=== PATIENT | female | born 1940 | race Caucasian/White ===

== ENCOUNTER 2017-01-27 16:37 | Observation (INO) | payer OTHER ==
[~2017-01-27] VITALS: Ht 177.8 cm; Wt 56.5 kg
[~2017-01-27 16:37] MED LIST: ASPIRIN81 M2 PO; CALCIUM MAGNES1 EACH PO; COZAAR100 MG PO; CRESTOR20 MG PO; FLEXERIL10 MG PO; HYDROCHLOROTH12.5 M3 PO; HYDROCHLOROTHIA25 MG PO; KLOR-CON M2020 MEQ PO; NORVASC10 MG PO; NORVASC5 MG PO
[2017-01-27 17:03] LABS: HEMATOCRIT 43.9 % (36.0-46.0); MCH 29.2 PG (29.0-34.0); MCHC 32.3 G/DL (30.0-36.0); MCV 90.1 FL (83-99); MEAN PLAT.VOLUME 9.6 uM^3 (9.5-12.4); PLATELET COUNT 319 K/uL (156-360); RBC DIS.WIDTH-CV 13.7 % (11.8-14.6); RBC DIS.WIDTH-SD 44.4 % (39-53); RED BLOOD COUNT 4.87 M/uL (3.80-5.20); WHITE BLOOD COUNT 10.3 K/uL (4.1-10.2)
[2017-01-27 17:19] LABS: CHLORIDE 104 mEq/L (99-109); SODIUM 143 mEq/L (136-147)
[2017-01-27 17:20] LABS: MAGNESIUM 1.8 mg/dL (1.3-2.7)
[2017-01-27 17:21] LABS: GLUCOSE 107 mg/dL (70-99)
[2017-01-27 17:23] LABS: ANION GAP 12 MEQ/L (2-14)
[2017-01-27 17:25] LABS: GFR ESTIMATE (CALCULATED) > 59 mL/min/
[2017-01-27 17:26] LABS: UREA NITROGEN (BUN) 21 mg/dL (9-23)
[2017-01-27 17:32] LABS: TROP-I INTERPRETATION NEGATIVE; TROPONIN-I 0.02 ng/mL (0.0-0.30)
[2017-01-27] MEDS ORDERED: NORVASC5 MG PO (21:01)
[2017-01-27] MEDS ORDERED: RISPERIDONE0.5 MG PO (21:02)
[2017-01-28 00:01] VITALS: BP 141/73
[2017-01-28 01:08] LABS: TROP-I INTERPRETATION NEGATIVE; TROPONIN-I 0.03 ng/mL (0.0-0.30)
[2017-01-28 04:36] VITALS: BP 157/78
[2017-01-28 06:24] LABS: ANION GAP 8 MEQ/L (2-14); CHLORIDE 107 MEQ/L (99-109); POTASSIUM 3.7 MEQ/L (3.7-5.4); SAMPLE HEMOLYSIS CHECK 0; SAMPLE ICTERIC CHECK 0; SAMPLE LIPEMIA CHECK 0; SODIUM 142 MEQ/L (136-147); TOTAL BILIRUBIN 0.4 MG/DL (0.0-1.0)
[2017-01-28 06:30] LABS: ALKALINE PHOSPHATASE 57 IU/L (3-129); GFR ESTIMATE (CALCULATED) > 59 mL/min/; GLUCOSE 84 mg/dL (70-99); UREA NITROGEN (BUN) 18 mg/dL (9-23)
[2017-01-28 06:32] LABS: TROP-I INTERPRETATION NEGATIVE; TROPONIN-I 0.02 ng/mL (0.0-0.30)
[2017-01-28 06:45] LABS: HEMATOCRIT 36.1 % (36.0-46.0); MCH 28.5 PG (29.0-34.0); MCHC 31.9 G/DL (30.0-36.0); MCV 89.4 FL (83-99); MEAN PLAT.VOLUME 9.9 uM^3 (9.5-12.4); PLATELET COUNT 285 K/uL (156-360); RBC DIS.WIDTH-CV 13.9 % (11.8-14.6); RBC DIS.WIDTH-SD 45.5 % (39-53); RED BLOOD COUNT 4.04 M/uL (3.80-5.20); WHITE BLOOD COUNT 8.5 K/uL (4.1-10.2)
[2017-01-28 08:30] VITALS: BP 147/75
[2017-01-28 11:50] VITALS: BP 140/69
[2017-01-28] MEDS ORDERED: LOPRESSOR25 MG PO (15:43)
== END 2017-01-28 17:16 | disposition home or self-care (01) ==
LOC: EME 16:37 → 4EAST 22:11 → EDOF 22:11 → 4EAST 22:11
PROVIDERS: Emergency Medicine; Internal Medicine
DX: I47.1 Supraventricular tachycardia (principal); T48.6X5A Adverse effect of antiasthmatics, initial encounter; D72.829 Elevated white blood cell count, unspecified; Z86.73 Personal history of transient ischemic attack (TIA), and cerebral infarction without residual deficits; I08.0 Rheumatic disorders of both mitral and aortic valves; I10 Essential (primary) hypertension; E78.00 Pure hypercholesterolemia, unspecified; F32.9 Major depressive disorder, single episode, unspecified; Z87.891 Personal history of nicotine dependence
CPT/HCPCS: 80048; 80053; 83735; 84443; 84484; 85027; 93005; 93306; 99281; 99285; G0378; J0153; J2250; J7030

== ENCOUNTER 2017-08-11 16:30 | Inpatient (IN) | payer OTHER ==
[~2017-08-11] VITALS: Ht 177.8 cm; Wt 64.3 kg
[~2017-08-11 16:30] MED LIST changes: +LOPRESSOR25 MG PO; +RISPERIDONE0.5 MG PO
[2017-08-11 17:59] LABS: ADD MIUA? YES; BILIRUBIN NEGATIVE; BLOOD NEGATIVE; COLOR YELLOW ((YELLOW)); GLUCOSE (STRIP) NEGATIVE; KETONES NEGATIVE; LEUKOCYTES NEGATIVE; NITRITE NEGATIVE; PROTEIN (STRIP) 30; UROBILINOGEN 0.2 MG/DL (0.2-1.0)
[2017-08-11 18:04] LABS: BACTERIA NONE SEEN /HPF; EPITHELIAL CELLS RARE /HPF; HYALINE CASTS 0-5 /LPF; MUCUS TRACE /LPF; RED BLOOD CELLS 0-5 /HPF (0-5); UCUL ADDED? NO; WHITE BLOOD CELLS 0-5 /HPF (0-5)
[2017-08-11 18:31] LABS: EOSINOPHIL (%) 0.4 % (0-5); EOSINOPHIL COUNT 0.1 K/uL (0-0.3); HEMATOCRIT 34.3 % (36.0-46.0); IMMATURE GRANULOCYTE (%) 2.2 % (0.0-0.7); IMMATURE GRANULOCYTE COUNT 0.4 K/uL; INSTRUMENT ABS NEUTROPHIL CT 16.7 K/uL; LYMPHOCYTE COUNT 0.6 K/uL (1.0-2.8); MCH 28.3 PG (29.0-34.0); MCHC 30.9 G/DL (30.0-36.0); MCV 91.7 FL (83-99); MEAN PLAT.VOLUME 9.6 uM^3 (9.5-12.4); MONOCYTE (%) 8.5 % (3-12); MONOCYTE COUNT 1.7 K/uL (0-0.8); NEUTROPHIL (%) 85.7 % (45-76); NEUTROPHIL COUNT 16.7 K/uL (1.8-6.4); PLATELET COUNT 364 K/uL (156-360); RBC DIS.WIDTH-CV 14.2 % (11.8-14.6); RBC DIS.WIDTH-SD 47.5 % (39-53); RED BLOOD COUNT 3.74 M/uL (3.80-5.20); WHITE BLOOD COUNT 19.5 K/uL (4.1-10.2)
[2017-08-11 18:45] LABS: CHLORIDE 111 mEq/L (99-109); POTASSIUM 4.2 mEq/L (3.7-5.4); SODIUM 143 mEq/L (136-147)
[2017-08-11 18:48] LABS: GLUCOSE 97 mg/dL (70-99)
[2017-08-11 18:49] LABS: ANION GAP 12 MEQ/L (2-14)
[2017-08-11 18:50] LABS: TOTAL BILIRUBIN 0.2 mg/dL (0.0-1.0)
[2017-08-11 18:51] LABS: ALKALINE PHOSPHATASE 67 IU/L (3-129); GFR ESTIMATE (CALCULATED) > 59 mL/min/
[2017-08-11 18:52] LABS: UREA NITROGEN (BUN) 28 mg/dL (9-23)
[2017-08-11 18:56] LABS: TROP-I INTERPRETATION NEGATIVE; TROPONIN-I 0.05 ng/mL (0.0-0.30)
[2017-08-11] MEDS ORDERED: TUMS DUAL ACTI1 EACH PO (20:22)
[2017-08-11] MEDS ORDERED: LORAZEPAM0.5 MG PO (20:23)
[2017-08-11 23:39] VITALS: BP 108/63
[2017-08-12 00:52] LABS: INTER. NORMALIZED RATIO 1.1; PROTHROMBIN TIME 11.8 SEC (10.2-12.9)
[2017-08-12 00:54] LABS: PTT 26.2 SEC (25-37)
[2017-08-12 01:07] LABS: TROP-I INTERPRETATION NEGATIVE; TROPONIN-I 0.06 ng/mL (0.0-0.30)
[2017-08-12 03:40] VITALS: BP 122/75
[2017-08-12 05:30] LABS: HEMATOCRIT 35.1 % (36.0-46.0); MCH 28.9 PG (29.0-34.0); MCHC 31.1 G/DL (30.0-36.0); MCV 93.1 FL (83-99); MEAN PLAT.VOLUME 10.2 uM^3 (9.5-12.4); PLATELET COUNT 326 K/uL (156-360); RBC DIS.WIDTH-CV 14.3 % (11.8-14.6); RBC DIS.WIDTH-SD 48.5 % (39-53); RED BLOOD COUNT 3.77 M/uL (3.80-5.20); WHITE BLOOD COUNT 9.4 K/uL (4.1-10.2)
[2017-08-12 05:41] LABS: TROP-I INTERPRETATION NEGATIVE; TROPONIN-I 0.04 ng/mL (0.0-0.30)
[2017-08-12 07:26] VITALS: BP 138/70
[2017-08-12 11:55] VITALS: BP 126/66
[2017-08-12 16:22] VITALS: BP 121/60
[2017-08-12 19:39] VITALS: BP 120/57
[2017-08-13 01:00] VITALS: BP 138/74
[2017-08-13 04:38] VITALS: BP 125/63
[2017-08-13 05:19] LABS: HEMATOCRIT 28.5 % (36.0-46.0); MCH 29.5 PG (29.0-34.0); MCHC 32.6 G/DL (30.0-36.0); MCV 90.5 FL (83-99); PLATELET COUNT 322 K/uL (156-360); RBC DIS.WIDTH-CV 14.3 % (11.8-14.6); RBC DIS.WIDTH-SD 46.9 % (39-53); RED BLOOD COUNT 3.15 M/uL (3.80-5.20); WHITE BLOOD COUNT 7.9 K/uL (4.1-10.2)
[2017-08-13 05:45] LABS: ANION GAP 7 MEQ/L (2-14); CHLORIDE 112 MEQ/L (99-109); GFR ESTIMATE (CALCULATED) > 59 mL/min/; GLUCOSE 73 mg/dL (70-99); POTASSIUM 3.5 MEQ/L (3.7-5.4); SAMPLE HEMOLYSIS CHECK 0; SAMPLE ICTERIC CHECK 0; SAMPLE LIPEMIA CHECK 0; SODIUM 141 MEQ/L (136-147); UREA NITROGEN (BUN) 11 mg/dL (9-23)
[2017-08-13 08:27] VITALS: BP 127/66
[2017-08-13 11:13] VITALS: BP 133/61
[2017-08-13 17:37] VITALS: BP 115/73
[2017-08-13 19:30] VITALS: BP 127/65
[2017-08-14 00:59] VITALS: BP 134/74
[2017-08-14 04:00] VITALS: BP 126/69
[2017-08-14 05:45] LABS: HEMATOCRIT 27.9 % (36.0-46.0); MCHC 31.5 G/DL (30.0-36.0); MCV 88.9 FL (83-99); PLATELET COUNT 333 K/uL (156-360); RBC DIS.WIDTH-CV 14.6 % (11.8-14.6); RBC DIS.WIDTH-SD 46.7 % (39-53); RED BLOOD COUNT 3.14 M/uL (3.80-5.20); WHITE BLOOD COUNT 5.6 K/uL (4.1-10.2)
[2017-08-14 06:20] LABS: ANION GAP 8 MEQ/L (2-14); CHLORIDE 114 MEQ/L (99-109); GFR ESTIMATE (CALCULATED) > 59 mL/min/; GLUCOSE 86 mg/dL (70-99); POTASSIUM 3.6 MEQ/L (3.7-5.4); SAMPLE HEMOLYSIS CHECK 0; SAMPLE ICTERIC CHECK 0; SAMPLE LIPEMIA CHECK 0; SODIUM 142 MEQ/L (136-147); UREA NITROGEN (BUN) 8 mg/dL (9-23)
[2017-08-14 07:56] VITALS: BP 134/74
[2017-08-14 16:00] VITALS: BP 129/82
[2017-08-14 20:15] VITALS: BP 138/62
[2017-08-15 04:02] VITALS: BP 132/74
[2017-08-15 05:56] LABS: HEMATOCRIT 29.5 % (36.0-46.0); MCHC 32.9 G/DL (30.0-36.0); MCV 88.1 FL (83-99); MEAN PLAT.VOLUME 9.9 uM^3 (9.5-12.4); PLATELET COUNT 321 K/uL (156-360); RBC DIS.WIDTH-CV 14.7 % (11.8-14.6); RED BLOOD COUNT 3.35 M/uL (3.80-5.20); WHITE BLOOD COUNT 7.1 K/uL (4.1-10.2)
[2017-08-15 06:28] LABS: ANION GAP 9 MEQ/L (2-14); CHLORIDE 110 MEQ/L (99-109); GFR ESTIMATE (CALCULATED) > 59 mL/min/; GLUCOSE 95 mg/dL (70-99); POTASSIUM 3.3 MEQ/L (3.7-5.4); SAMPLE HEMOLYSIS CHECK 0; SAMPLE ICTERIC CHECK 0; SAMPLE LIPEMIA CHECK 0; SODIUM 140 MEQ/L (136-147); UREA NITROGEN (BUN) 6 mg/dL (9-23)
[2017-08-15 07:46] VITALS: BP 131/69
[2017-08-15 12:00] VITALS: BP 138/77
[2017-08-15] MEDS ORDERED: DONEPEZIL HCL5 MG PO (12:53)
[2017-08-15] MEDS ORDERED: MIRTAZAPINE15 MG PO (12:53)
[2017-08-15] MEDS ORDERED: LORAZEPAM0.5 MG PO (12:56)
[2017-08-15] MEDS ORDERED: LOVENOX40 MG/0.4 SC (13:00)
[2017-08-15] MEDS ORDERED: CEFTIN500 MG PO (13:01)
[2017-08-15] MEDS ORDERED: ACIDOPHILUS LA1 EAC1 PO (13:01)
== END 2017-08-15 18:50 | DRG 853 ==
LOC: EME 16:30 → 4EAST 21:40 → EDOF 21:40 → ENRESERV 21:52 → 4EAST 23:20
PROVIDERS: Emergency Medicine; Family Medicine; Hospitalist
PROC: 06H03DZ Insertion of Intraluminal Device into Inferior Vena Cava, Percutaneous Approach (ICD-10-PCS; principal; 2017-08-14)
DX: A41.9 Sepsis, unspecified organism (principal); J44.0 Chronic obstructive pulmonary disease with (acute) lower respiratory infection; J18.9 Pneumonia, unspecified organism; I26.99 Other pulmonary embolism without acute cor pulmonale; G93.41 Metabolic encephalopathy; E87.2 Acidosis; L89.893 Pressure ulcer of other site, stage 3; L89.899 Pressure ulcer of other site, unspecified stage; L03.032 Cellulitis of left toe; R09.02 Hypoxemia; I10 Essential (primary) hypertension; E78.5 Hyperlipidemia, unspecified; M41.9 Scoliosis, unspecified; F05 Delirium due to known physiological condition; F01.50 Vascular dementia, unspecified severity, without behavioral disturbance, psychotic disturbance, mood disturbance, and anxiety; G47.00 Insomnia, unspecified; G25.81 Restless legs syndrome; R33.9 Retention of urine, unspecified; F41.1 Generalized anxiety disorder; F17.210 Nicotine dependence, cigarettes, uncomplicated; Z85.3 Personal history of malignant neoplasm of breast; Z86.73 Personal history of transient ischemic attack (TIA), and cerebral infarction without residual deficits; Z98.82 Breast implant status
CPT/HCPCS: 70450; 71010; 71275; 73630; 74177; 80048; 80053; 81003; 82272; 83605; 83880; 84484; 85025; 85027; 85610; 85730; 87040; 87070; 87075; 87205; 93005; 93970; 94799; 99281; 99285; C1769; C1894; J0456; J0696; J1650; J2250; J2543; J3010; J3370; J7030; J7050; S0028

== ENCOUNTER 2017-10-02 10:28 | Emergency (ER) | payer OTHER ==
[~2017-10-02] VITALS: Ht 177.8 cm; Wt 54.7 kg
[~2017-10-02 10:28] MED LIST changes: +ACIDOPHILUS LA1 EAC1 PO; +CEFTIN500 MG PO; +DONEPEZIL HCL5 MG PO; +LORAZEPAM0.5 MG PO; +LOVENOX40 MG/0.4 SC; +MIRTAZAPINE15 MG PO; +TUMS DUAL ACTI1 EACH PO
[2017-10-02 12:15] LABS: EOSINOPHIL COUNT 0.2 K/uL (0-0.3); HEMATOCRIT 35.8 % (36.0-46.0); IMMATURE GRANULOCYTE (%) 0.5 % (0.0-0.7); INSTRUMENT ABS NEUTROPHIL CT 5.4 K/uL; LYMPHOCYTE COUNT 1.5 K/uL (1.0-2.8); MCH 26.8 PG (29.0-34.0); MCHC 31.6 G/DL (30.0-36.0); MCV 84.8 FL (83-99); MEAN PLAT.VOLUME 9.7 uM^3 (9.5-12.4); MONOCYTE COUNT 0.7 K/uL (0-0.8); NEUTROPHIL COUNT 5.4 K/uL (1.8-6.4); PLATELET COUNT 452 K/uL (156-360); RBC DIS.WIDTH-CV 14.6 % (11.8-14.6); RBC DIS.WIDTH-SD 44.9 % (39-53); RED BLOOD COUNT 4.22 M/uL (3.80-5.20); WHITE BLOOD COUNT 7.8 K/uL (4.1-10.2)
[2017-10-02 12:29] LABS: CHLORIDE 101 mEq/L (99-109); POTASSIUM 3.1 mEq/L (3.7-5.4); SODIUM 142 mEq/L (136-147)
[2017-10-02 12:30] LABS: MAGNESIUM 1.4 mg/dL (1.3-2.7)
[2017-10-02 12:32] LABS: GLUCOSE 93 mg/dL (70-99)
[2017-10-02 12:33] LABS: ANION GAP 13 MEQ/L (2-14)
[2017-10-02 12:34] LABS: TOTAL BILIRUBIN 0.4 mg/dL (0.0-1.0)
[2017-10-02 12:35] LABS: ALKALINE PHOSPHATASE 74 IU/L (3-129)
[2017-10-02 12:36] LABS: GFR ESTIMATE (CALCULATED) 51 mL/min/
[2017-10-02 12:37] LABS: UREA NITROGEN (BUN) 17 mg/dL (9-23)
[2017-10-02 12:54] LABS: ADD MIUA? YES; BILIRUBIN NEGATIVE; BLOOD NEGATIVE; COLOR AMBER ((YELLOW)); GLUCOSE (STRIP) NEGATIVE; KETONES NEGATIVE; LEUKOCYTES LARGE; NITRITE NEGATIVE; PROTEIN (STRIP) 100; UROBILINOGEN 0.2 MG/DL (0.2-1.0)
[2017-10-02 13:06] LABS: BACTERIA 3+ /HPF; EPITHELIAL CELLS NONE SEEN /HPF; HYALINE CASTS 20-30 /LPF; MUCUS 4+ /LPF; RED BLOOD CELLS TNTC /HPF (0-5); UCUL ADDED? YES; WHITE BLOOD CELLS TNTC /HPF (0-5); WHITE BLOOD CELLS CLUMP MANY /HPF (0-5)
[2017-10-02 17:07] VITALS: BP 122/83
== END 2017-10-02 17:24 ==
LOC: EME 10:28
PROVIDERS: Emergency Medicine
DX: N39.0 Urinary tract infection, site not specified (principal); J44.9 Chronic obstructive pulmonary disease, unspecified; E78.5 Hyperlipidemia, unspecified; I10 Essential (primary) hypertension; Z87.891 Personal history of nicotine dependence; F41.9 Anxiety disorder, unspecified
CPT/HCPCS: 71010; 80053; 81003; 83605; 83735; 84443; 85025; 87077; 87086; 87186; 93005; 99281; 99285; J0696; J7030; J7050